=== PATIENT | female | born 1940 | race Caucasian/White ===

== ENCOUNTER 2021-03-25 08:30 | Outpatient (CLI) | payer BC ==
[2021-03-25] MEDS ORDERED: LIDOCAINE SOLN 4% 50 ML BOTTLE ONE (08:55)
== END 2021-03-25 23:59 | disposition home or self-care (01) ==
LOC: WOU 08:30
PROVIDERS: ATTEND Specialist
DX: S81.812D Laceration without foreign body, left lower leg, subsequent encounter (principal); S81.811D Laceration without foreign body, right lower leg, subsequent encounter; W23.1XXD Caught, crushed, jammed, or pinched between stationary objects, subsequent encounter; R60.0 Localized edema; I10 Essential (primary) hypertension
CPT/HCPCS: 99205; A6209; G0463

== ENCOUNTER 2021-04-01 08:42 | Outpatient (CLI) | payer BC ==
[2021-04-01] MEDS ORDERED: LIDOCAINE SOLN 4% 50 ML BOTTLE ONE (08:56)
== END 2021-04-01 23:59 | disposition home or self-care (01) ==
LOC: WOU 08:42
PROVIDERS: ATTEND Specialist
DX: S81.811D Laceration without foreign body, right lower leg, subsequent encounter (principal); W22.8XXD Striking against or struck by other objects, subsequent encounter; R60.0 Localized edema; I10 Essential (primary) hypertension
CPT/HCPCS: 87070; 87075; 87077; 87186 ×2; 99214; A6209; G0463